=== PATIENT | female | born 1980 | race Caucasian/White ===

== ENCOUNTER → 2018-05-21 | Day surgery (SDC) | payer BC ==
[~2018-05-21] MED LIST: ALPR0.25 PO; DOCU-109 PO; HYDR-2761 PO; HYDR-3164 PO; HYDROmorphone 2 MG/ML VIAL IV PRN; IV RINGERS,LACTATED 1000ML 1,000 ML IV SCH; LIDOCAINE 1% PF 2 ML VIAL. ID PRN; LISD30CA5 PO; MORPHINE SULFATE 2 MG/ML VIAL. IV PRN; NAPR-514 PO; ONDA4TAB10 SL; ONDANSETRON PF 4 MG/2 ML VIAL. IV PRN; OXYC5TAB4 PO; PROCHLORPERAZINE 10 MG/2 ML VIAL. IV PRN; PROPOFOL 20 ML IV ONE; PROPOFOL 40 ML IV ONE; SPIR50TA4 PO; fentaNYL PF VIAL 100 MCG/2 ML VIAL IV PRN
--- NOTE | 2018-05-21 16:53 | OP ---
DATE OF SURGERY: 05/21/2018 PROCEDURE PERFORMED: Esophagogastroduodenoscopy with biopsy. INSTRUMENT USED: Olympus video upper scope. MEDICATIONS RECEIVED: Propofol per anesthesia. PREOPERATIVE DIAGNOSES: Chronic reflux, heartburn, refractory to medical therapy. POSTOPERATIVE DIAGNOSIS: Reflux esophagitis, status post biopsies. DESCRIPTION OF PROCEDURE: After risks and benefits of procedure including risk of hemorrhage and perforation were discussed with the patient and family, informed consent was obtained. The patient was then placed in the left decubitus position. Parenteral analgesia administered. Endoscope was advanced through esophagus, stomach, and first and second portions of duodenum. No evidence of ulcer formation or stricture noted in the duodenum. No evidence of celiac disease was encountered. Serial inspection of stomach including retroflexion revealed no additional pathology. No ulcers, no varices, no malignancy within the distal esophagus, chronic reflux was encountered. This was biopsied for Gan's. Scope was then straightened and withdrawn. The patient tolerated the procedure well. DISPOSITION: Resume previous diet, meds and activity. CONDITION: Stable ____ RECOMMENDATION: The patient will be seen in office in followup in 2 weeks' time to further assess symptoms. OSIRIS JIN MD DR: YESENIA/rober JOB#: [id number] / [id number] DELVIS Sanders
[2018-05-21 17:04] VITALS: BP 126/71
[2018-05-21 17:31] LABS: U PREG PATIENT NEGATIVE (NEG)
--- NOTE | 2018-05-23 14:13 | PATHOLOGY ---
[facility] Accession Number: [id number] . 01 Material submitted: . DISTAL ESOPHAGUS BIOPSY . 01 Clinical history: . Reflux, [facility] . 02 Diagnosis: Esophageal biopsies, distal esophagus: - Segments of hyperplastic squamous esophageal mucosa and segment of gastric mucosa showing mild chronic inflammation, consistent with reflux esophagitis. [facility]/05/23/2018 . 02 Comment: Sections of the distal esophageal biopsy primarily reveal segments of hyperplastic squamous esophageal mucosa. There is also a segment of gastric mucosa showing mild chronic inflammation. The findings are consistent with reflux esophagitis. There is no evidence of dysplasia or malignancy. (JPM:[facility] 05/23/2018) . 02 Electronically signed: . Wayne Mike MD, Pathologist NPI- [id number] . 01 Gross description: . Received in formalin labeled "Rich, Miladys, distal esophagus BX," are multiple segments of burrell soft tissue measuring 1.9 x 0.5 x 0.1 cm in aggregate dimensions. The specimen is filtered and entirely submitted in cassette A1. ([facility]; 05/22/2018) TOB/TOB . 02 Pathologist provided ICD-10: K21.0 . 02 CPT . 139210 Specimen Comment: A courtesy copy of this report has been sent to Specimen Comment: [phone], . Specimen Comment: Report sent to / DR JAUREGUI Specimen Comment: A duplicate report has been generated due to demographic updates. Performed at: 01 [facility] [address], [place] [id number] MD Pierre Farah MD Phone: [phone] Performed at: 02 [facility] [address] [place], [place] [id number] MD Wayne Mike MD Phone: [phone]
== END | disposition home or self-care (01) ==
LOC: SURG 14:58
PROVIDERS: ATTEND Internal Medicine Gastroenterology
DX: K64.0 First degree hemorrhoids (principal); K29.50 Unspecified chronic gastritis without bleeding; K22.2 Esophageal obstruction; K21.0 Gastro-esophageal reflux disease with esophagitis; Z88.0 Allergy status to penicillin; Z83.79 Family history of other diseases of the digestive system
CPT/HCPCS: 43239; 45378; 81025; 88305; J2704